=== PATIENT | male | born 1955 | race African-American/Black ===

== ENCOUNTER 2017-12-11 15:03 | Emergency (ER) | payer SELFPAY ==
[2017-12-11 15:32] VITALS: BP 162/99; PULSE 69; TEMP 98.3; BMI 19.9
--- NOTE | 2017-12-11 15:33 | PDOC ---
Rapid Medical Evaluation Time Seen by Provider: 12/11/17 15:26 Medical Evaluation: 12/11/17 15:26 The patient presents with a chief complaint of: left knee laceration from a TV that he was carrying, that happened 1.5 hours ago. He put a dressing on with electrical tape. I have performed a brief in-person evaluation of this patient; Pertinent physical exam findings: left knee proximal wound with dsg in place. Lac approx 3 in linear above knee. ambulatory, in no respiratory distress, he has an elevated bp 158/117 and he says he is in pain and takes "water pills" for that" I have ordered the following: nothing, needs sutures, will need a tetanus. The patient will proceed to the ED for further evaluation.
--- NOTE | 2017-12-11 16:17 | PDOC ---
History of Present Illness - General Chief Complaint: Injury Stated Complaint: LEFT LEG INJURY Time Seen by Provider: 12/11/17 15:26 History Source: Patient Exam Limitations: No Limitations - History of Present Illness Initial Comments: 12/11/17 16:09 CHIEF COMPLAINT: Laceration above left knee HISTORY OF PRESENT ILLNESS: Patient is a 62-year-old male reports carrying a heavy TV hit the doorway, the TV broke to prevent the television from falling Placed TV on the left knee sustaining a laceration. Received patient ambulatory , kneecap is intact. Wound measures approximately 6 cm in length. Denies any other injury. 12/11/17 16:18 12/11/17 16:19 Occurred: reports: just prior to arrival Severity: Yes: moderate Lower Extremity Pain Location: left: knee Modifying Factors: improves with: None Lower Ext. Injury Location - Specific Injury Location Knees: left pain Extremity Pain Location - Extremity Pain Location Extremity Pain Locations: left: knee Past History - Past Medical History Allergies/Adverse Reactions: Allergies Allergy/AdvReac Type Severity Reaction Status Date / Time No Known Allergies Allergy Verified 12/11/17 15:26 COPD: No - Immunization History Immunization Up to Date: Yes - Suicide/Smoking/Psychosocial Hx Smoking History: Never smoked Have you smoked in the past 12 months: No Information on smoking cessation initiated: No Hx Alcohol Use: No Drug/Substance Use Hx: No Substance Use Type: None Review of Systems - Review of Systems Constitutional: No: Symptoms Reported HEENTM: No: Symptoms Reported Respiratory: No: Symptoms reported Musculoskeletal: No: Joint Pain, Joint Swelling Integumentary: Yes: Other (6 cm laceration to the left knee.). No: Erythema Neurological: No: Symptoms reported Hematologic/Lymphatic: No: Symptoms Reported All Other Systems: Reviewed and Negative *Physical Exam - Vital Signs Last Vital Signs Temp Pulse Resp BP Pulse Ox 98.3 F 69 15 162/99 99 12/11/17 15:27 12/11/17 15:27 12/11/17 15:27 12/11/17 15:27 12/11/17 15:27 - Physical Exam General Appearance: Yes: Appropriately Dressed. No: Apparent Distress Respiratory/Chest: positive: Lungs Clear, Normal Breath Sounds Cardiovascular: positive: Regular Rhythm, Regular Rate Lymphatic: negative: Adenopathy Musculoskeletal: positive: Other (6 cm laceration superior to left patella. No surrounding edema, erythema, no active bleeding.) Extremity: positive: Normal Capillary Refill, Normal Range of Motion. negative : Normal Inspection (laceration as noted above), Swelling, Erythema, Inflammation Integumentary: positive: Normal Color, Dry, Other (6 cm laceration as noted above.). negative: Erythema, Swelling, Ecchymosis, Bruising Neurologic: positive: Fully Oriented, Alert, Normal Mood/Affect Procedures - Laceration/Wound Repair Left Knee Wound Length: 5.0 to 7.5 cm Wound Explored: clean Wound's Depth, Shape: flap Irrigated w/ Saline: Yes Betadine Prep: Yes Anesthesia: 1% Lidocaine Amount of Anesthetic (ccs): 6 Wound Debrided: moderate Wound Repaired With: Sutures Suture Size/Type: 5:0 Number of Sutures: 11 Layer Closure: No Medical Decision Making - Medical Decision Making 12/11/17 16:24 A/P: Patient here for laceration to left knee,patella is intact. Laceration repaired, see procedure note. Instructions for care and follow-up given to patient, he verbalized understanding. Take Motrin or Tylenol as needed for pain. *DC/Admit/Observation/Transfer Diagnosis at time of Disposition: Laceration of knee Qualifiers: Encounter type: initial encounter Laterality: left Qualified Code(s): S81.012A - Laceration without foreign body, left knee, initial encounter - Discharge Dispostion Disposition: HOME Condition at time of disposition: Stable Admit: No - Referrals - Patient Instructions Additional Instructions: Keep area clean dry and intact Keep dressing on until tomorrow If any increased bleeding through the dressing return immediately to emergency department Keep area clean dry and intact bacitracin x3 days, then let it dry out Please return in 10 days for suture removal. Please return immediately to emergency department with any increased redness, swelling, signs of infection - Post Discharge Activity Forms/Work/School Notes: Back to Work
== END 2017-12-11 16:49 | disposition home or self-care (01) ==
LOC: JERFT 15:03
PROC: 0HQLXZZ Repair Left Lower Leg Skin, External Approach (ICD-10-PCS; principal; 2017-12-11)
DX: S81.012A Laceration without foreign body, left knee, initial encounter (principal); W22.03XA Walked into furniture, initial encounter; Y93.89 Activity, other specified; Y92.9 Unspecified place or not applicable
CPT/HCPCS: 99281-25